=== PATIENT | female | born 1995 | race African-American/Black ===

== ENCOUNTER 2020-09-11 10:59 | Emergency (ER) | payer OTHER ==
[~2020-09-11] VITALS: Ht 165.1 cm; Wt 83.0 kg
[2020-09-11] MEDS ORDERED: ACETAMINOPHEN 325MG TABLET PO PRN (12:15)
[2020-09-11 13:21] LABS: CHLORIDE 107 mEq/L (98-107)
[2020-09-11 13:36] LABS: BASOPHILS % 0.3 % (0.0-2.0); EOSINOPHILS % 1.1 % (0.0-5.0); HEMATOCRIT. 36.4 % (36.0-48.0); HEMOGLOBIN. 11.8 g/dL (12.0-16.0); MEAN CORPUSCULAR HEMOGLOBIN 26.5 pg (28.0-32.0); MEAN CORPUSCULAR VOLUME 81.6 fL (81.0-99.0); MEAN PLATELET VOLUME 8.6 fl (7.4-10.4); NEUTROPHILS % 62.6 % (40.0-76.0); PLATELET 249 x1000/uL (130-400); RED BLOOD CELL COUNT 4.47 mill/uL (4.2-5.4)
[2020-09-11 13:46] LABS: B-HCG QUANTITATIVE 64959 mIU/mL (<3)
[2020-09-11 13:48] LABS: CLARITY URINE CLEAR (CLEAR); COLOR URINE YELLOW (YELLOW); KETONES URINE NEGATIVE (NEGATIVE); LEUKOCYTE ESTERASE URINE NEGATIVE (NEGATIVE); NITRITE URINE NEGATIVE (NEGATIVE); OCCULT BLOOD URINE NEGATIVE (NEGATIVE); PROTEIN URINE NEGATIVE (NEGATIVE); SPECIFIC GRAVITY URINE 1.031 (1.005-1.030)
[2020-09-11 14:00] VITALS: BP 112/70
== END 2020-09-11 15:09 | disposition home or self-care (01) ==
LOC: ER 10:59
DX: O20.0 Threatened abortion (principal); O26.891 Other specified pregnancy related conditions, first trimester; R03.0 Elevated blood-pressure reading, without diagnosis of hypertension; Z3A.01 Less than 8 weeks gestation of pregnancy
CPT/HCPCS: 36415; 76801; 80053; 81003; 81025; 84702; 85025; 86850; 86900; 93005; 99285